=== PATIENT | male | born 1950 | race Caucasian/White ===

== ENCOUNTER 2016-07-23 19:58 | Emergency (ER) | payer OTHER ==
[~2016-07-23] VITALS: Ht 177.8 cm; Wt 100.0 kg
[~2016-07-23 19:58] MED LIST: ASPIR-LOW81 MG PO; CEPHALEXIN500 M1 PO; FISH OIL CONC1000 MG PO; LORTAB 5/500 501 TAB PO; PERCOCET 325 MG1 TA2 PO
[2016-07-23 20:00] VITALS: TEMP 98.6
[2016-07-23] MEDS ORDERED: ULTRAM 50MG TAB50 MG PO (22:05)
[2016-07-23] MEDS ORDERED: CEPHALEXIN500 M1 PO (22:05)
[2016-07-23] MEDS ORDERED: PERCOCET 325 MG1 TA2 PO (22:05)
[2016-07-23 22:45] VITALS: BP 155/88; PULSE 66
== END 2016-07-23 22:46 | disposition home or self-care (01) ==
LOC: COL.ER 19:58
DX: S61.431A Puncture wound without foreign body of right hand, initial encounter (principal); S61.531A Puncture wound without foreign body of right wrist, initial encounter; W34.09XA Accidental discharge from other specified firearms, initial encounter; Y92.009 Unspecified place in unspecified non-institutional (private) residence as the place of occurrence of the external cause; Z23 Encounter for immunization
CPT/HCPCS: J0690; J1170

== ENCOUNTER 2016-08-28 12:28 | Emergency (ER) | payer OTHER ==
[~2016-08-28] VITALS: Ht 177.8 cm; Wt 98.2 kg
[~2016-08-28 12:28] MED LIST changes: +ULTRAM 50MG TAB50 MG PO
[2016-08-28 12:30] VITALS: TEMP 98
[2016-08-28 13:03] LABS: BASO % 0.6 % (0.0-2.0); EOS # 0.2 (0.0-0.7); EOS % 3.3 % (0-4.0); GRAN # 3.6 (1.4-6.5); GRAN % 56.4 % (42.2-75.2); HEMATOCRIT 39.3 % (42.0-52.0); HEMOGLOBIN 13.3 g/dl (13.5-18.0); LYMPH # 1.8 (1.2-3.4); LYMPH % 28.9 % (20.0-51.0); MEAN CELL VOLUME 96 fl (80.0-100.0); MEAN CORPUSCULAR HEMOGLOBIN 32 pg (27.0-31.0); MEAN CORPUSCULAR HGB CONC 34 g/dl (33.0-37.0); MEAN PLATELET VOLUME 9.9 fl (7.4-10.4); MONO # 0.6 (0.1-0.6); PLATELET COUNT 256 K/mm3 (130-400); REDCELL DISTRIBUTION WIDTH-CV 12.7 % (11.5-14.5); WHITE BLOOD COUNT 6.3 K/mm3 (4.8-10.8)
[2016-08-28 13:05] LABS: ADJUSTED CALCIUM 9.3 mg/dL (8.4-10.2); ALANINE AMINOTRANSFERASE 30 U/L (21-72); ALKALINE PHOSPHATASE 77 U/L (50-136); ANION GAP 12 mmol/L (7-16); BILIRUBIN,TOTAL 0.7 mg/dL (0.0-1.0); BLOOD UREA NITROGEN 21 mg/dL (9-20); CALCIUM 9.3 mg/dL (8.4-10.2); CARBON DIOXIDE 23 mmol/L (22-30); CHLORIDE 105 mmol/L (98-107); CREATININE, serum 0.75 mg/dL (0.66-1.25); GLUCOSE 94 mg/dL (74-106); LIPASE 49 U/L (23-300); POTASSIUM 4.2 mmol/L (3.4-5.0); SODIUM 140 mmol/L (137-145); TOTAL PROTEIN 6.8 gm/dL (6.4-8.2)
[2016-08-28 13:17] LABS: B-TYPE NATRIURETIC PEPTIDE 148 pg/mL (0-125)
[2016-08-28 13:18] LABS: TROPONIN-I < 0.012 ng/mL (0.000-0.034)
[2016-08-28] MEDS ORDERED: COZAAR100 MG PO (13:23)
[2016-08-28] MEDS ORDERED: CO Q-1010 M1 PO (13:40)
[2016-08-28] MEDS ORDERED: NITROSTAT0.4 MG/TAB SL (16:46)
[2016-08-28 17:21] VITALS: BP 157/99; PULSE 70
== END 2016-08-28 17:23 | disposition home or self-care (01) ==
LOC: COL.ER 12:28
PROVIDERS: Emergency Medicine
DX: R07.9 Chest pain, unspecified (principal); I10 Essential (primary) hypertension; R20.2 Paresthesia of skin; Z87.891 Personal history of nicotine dependence

== ENCOUNTER → 2016-09-24 | Outpatient (CLI) | payer OTHER ==
[2005-02-18 07:45] VITALS: TEMP 97.2
[~2016-09-24] MED LIST changes: +CO Q-1010 M1 PO; +COZAAR100 MG PO; +NITROSTAT0.4 MG/TAB SL
== END ==
LOC: COL.RAD 09:15
DX: I10 Essential (primary) hypertension (principal)

== ENCOUNTER 2020-10-11 06:39 | Day surgery (SDC) | payer OTHER ==
[~2020-10-11] VITALS: Ht 177.8 cm; Wt 92.2 kg
[2020-10-11 07:20] VITALS: BP 140/93; PULSE 70; TEMP 98.4
[2020-10-11] MEDS ORDERED: HCTZ12.5TAB PO (07:31)
[2020-10-11] MEDS ORDERED: COZAAR 50MG50 MG/TAB PO (07:31)
[2020-10-11] MEDS ORDERED: ZOCOR5 MG PO (07:32)
[2020-10-11] MEDS ORDERED: ASPIRIN 81M81 MG/TA2 PO (07:34)
[2020-10-11] MEDS ORDERED: OMEGA-31 SGL PO (07:34)
[2020-10-11] MEDS ORDERED: ONE-A-DAY ESSE1 EACH PO (07:35)
[2020-10-11] MEDS ORDERED: TURMERIC500 MG PO (07:36)
[2020-10-11] MEDS ORDERED: VITAMIN D31000 I1 PO (07:38)
--- NOTE | 2020-10-11 07:39 | NUR ---
TO RM 5 AT 0655- CALL LIGHT IN REACH
[2020-10-11 09:00] VITALS: BP 121/73; PULSE 62; TEMP 98.1
--- NOTE | 2020-10-11 09:05 | NUR ---
PREVIOUS NOTE TIME 0900. VSS ON ROOM AIR. PATIENT DRINKS COLA WITHOUT PROBLEMS. DENIES DISCOMFORT AND NAUSEA. IN ROOM.
[2020-10-11 09:15] VITALS: BP 133/71; PULSE 56
--- NOTE | 2020-10-11 09:15 | NUR ---
VSS ON ROOM AIR. DOCTOR COMES AND SPEAKS WITH PATIENT AND . PATIENT DENIES DISCOMFORT AND NAUSEA. TOLERATES MUFFIN AND TEA WITHOUT PROBLEMS.
--- NOTE | 2020-10-11 09:27 | NUR ---
PATIENT TRANSPORTED PER CART FROM GI SUITE TO BAY 5 ACCOMPANIED BY ANH RN. PATIENT AMBULATED FROM CART TO CHAIR WITH 2 ASSIST. SLOW STEADY GAIT. MONITORS APPLIED. VSS ON ROOM AIR. VERBAL REPORT RECEIVED.
[2020-10-11 09:30] VITALS: BP 144/77; PULSE 53
[2020-10-11 09:40] VITALS: BP 143/87; PULSE 54
--- NOTE | 2020-10-11 09:40 | NUR ---
Discharge instructions were reviewed with the patient and his by JERRY Castañeda. They both verbalized understanding and have no questions. The patient was instructed to get dressed while his pulls the car up to the patient entrance.
--- NOTE | 2020-10-11 09:45 | NUR ---
The patient was escorted out via wheelchair to a private vehicle by JERRY Rodriguez. The patient's belongings and discharge paperwork were sent with him. The patient's , Alla, is present to drive him home.
== END 2020-10-11 09:45 | disposition home or self-care (01) ==
LOC: SDCO 06:39
DX: Z12.11 Encounter for screening for malignant neoplasm of colon (principal); K57.30 Diverticulosis of large intestine without perforation or abscess without bleeding; I10 Essential (primary) hypertension; Z86.010 Personal history of colon polyps; Z79.82 Long term (current) use of aspirin
CPT/HCPCS: J2704; J7030